=== PATIENT | female | born 1990 | race Hispanic/Latino ===

== ENCOUNTER 2018-10-10 06:44 | Day surgery (SDC) | payer BC ==
[~2018-10-10 06:44] MED LIST: ACETAMIN325 MG PO; BACTRIM DS1 TAB PO; CIPRO500 MG OR; FISH OIL1000 MG PO; IBUPROFEN600 MG PO; PRENATAL1 TA1 PO
[2018-10-10] MEDS ORDERED: TORADOL PO (08:51)
[2018-10-10 09:34] VITALS: BP 110/74
== END 2018-10-10 09:54 | disposition home or self-care (01) | DRG 585 ==
LOC: ORM 06:44
PROVIDERS: ATTEND Surgery
PROC: 0HBT0ZZ Excision of Right Breast, Open Approach (ICD-10-PCS; principal; 2018-10-10)
DX: D24.1 Benign neoplasm of right breast (principal)